=== PATIENT | male | born 1945 | race Caucasian/White ===

== ENCOUNTER 2017-12-04 08:07 | Inpatient (IN) | payer MEDICARE ==
[~2017-12-04] VITALS: Ht 170.2 cm; Wt 133.5 kg
[~2017-12-04 08:07] MED LIST: ATORVASTATIN CA10 MG PO; GLYBURIDE5 MG PO; LISINOPRIL2.5 MG PO; METOPROLOL TART25 MG PO; PANTOPRAZOLE SO40 MG PO; SPIRONOLACTONE25 MG PO
[2017-12-04] MEDS ORDERED: ONDANSETRON HCL INJ 2 MG/ML VIAL IV PRN (08:15)
[2017-12-04] MEDS ORDERED: MUPIROCIN 2% OINT 22 GM TUBE TOP ONE (08:30)
--- NOTE | 2017-12-04 09:12 | Diagnostic Imaging Report ---
PROCEDURE:X-RAY LEFT KNEE, THREE OR MORE VIEWS COMPARISON:None. INDICATIONS:FALL, LEFT KNEE PAIN FINDINGS:Diffuse osteopenia. No evidence of displaced fracture, malalignment, or joint effusion. There is tricompartmental medial compartment predominant moderate degenerative changes with joint space narrowing. Atherosclerotic vascular calcifications. CONCLUSION: Diffuse osteopenia without evidence of displaced fracture or malalignment. Dictated by: JACKIE NICOLAS M.D. on 12/04/2017 at 9:17 Electronically approved by: JACKIE NICOLAS M.D. on 12/04/2017 at 9:17
[2017-12-04] MEDS ORDERED: BACITRACIN ZINC 0.9GM TP ONE (09:15)
[2017-12-04] MEDS: HYDROMORPHONE 1MG/1ML INJ IV PRN ×2 (10:05→15:55)
[2017-12-04 10:07] LABS: BASOPHILS # (AUTO) 0.1 (0.0-0.1); BASOPHILS % 0.5 % (0.0-1.0); EOSINOPHILS # (AUTO) 0.2 (0.0-0.4); EOSINOPHILS % 2.1 % (0.0-6.0); HEMATOCRIT 34.8 % (38.2-49.6); HEMOGLOBIN 11.5 g/dL (14.0-18.0); LYMPHOCYTES # (AUTO) 1.4 (1.0-3.2); LYMPHOCYTES % 12.4 % (18.0-39.1); MEAN CORPUSCULAR HEMOGLOBIN 30.6 pg (28-32); MEAN CORPUSCULAR VOLUME 92.6 fL (81-99); MONOCYTES # (AUTO) 0.7 (0.2-0.8); MONOCYTES % 6.4 % (4.4-11.3); NEUTROPHILS # (AUTO) 8.7 (2.1-6.9); PLATELET COUNT 190 x10e3/uL (140-360); RED BLOOD COUNT 3.76 x10e6/uL (4.3-5.7); RED CELL DISTRIBUTION WIDTH 13.6 % (11.7-14.4)
--- NOTE | 2017-12-04 10:21 | Diagnostic Imaging Report ---
PROCEDURE: A single AP view of the chest. COMPARISON: Chest radiograph 02/06/2015. INDICATIONS: FALL FINDINGS: Lines/tubes: Left sided dual chamber pacer device with leads projecting over the expected location of the right atrium and right ventricle. Lungs: The lungs are well inflated and clear. There is no evidence of pneumonia or pulmonary edema. Pleura: There is no pleural effusion or pneumothorax. Heart and mediastinum: The cardiomediastinal silhouette is unchanged. Bones: No acute bony abnormality. No evidence of displaced fracture. IMPRESSION: No evidence of pneumothorax or displaced rib fracture. Clear lungs. Dictated by: JACKIE NICOLAS M.D. on 12/04/2017 at 10:26 Electronically approved by: JACKIE NICOLAS M.D. on 12/04/2017 at 10:26
[2017-12-04 10:25] LABS: ALBUMIN 2.7 g/dL (3.5-5.0); ALBUMIN/GLOBULIN RATIO 0.8 (0.8-2.0); ANION GAP 15.5 mmol/L (8-16); CALCIUM 8.8 mg/dL (8.4-10.2); CREATININE, SERUM 2.06 mg/dL (0.72-1.25); MAGNESIUM 1.4 MG/DL (1.3-2.1); POTASSIUM 4.5 mmol/L (3.5-5.1)
--- NOTE | 2017-12-04 10:41 | Diagnostic Imaging Report ---
EXAMINATION: CT of the thoracic and lumbar spine without contrast. HISTORY: Status post fall this morning going down a ramp, back pain COMPARISON: None. TECHNIQUE: Multidetector helical axial images were obtained without contrast through the thoracic and lumbar spine. The images were reconstructed using bone and soft tissue algorithms and were viewed in axial, sagittal and coronal planes. Image quality: Portable redistribution due to x-ray john attenuation given patient's body habitus and perhaps motion, with limited evaluation particularly of the lumbar spine. FINDINGS: Curvature: Normal thoracic kyphosis and lumbar lordosis. Vertebrae: -Likely acute mildly displaced acute fracture subluxation through the anterior/superior endplate of T9 and anterior longitudinal ligament, with fracture of the right anterior bridging osteophyte. -Interbody fusion and weightbearing anterior ridging osteophyte from T2 to T12 and partially at L1-L2 anteriorly and laterally at L2-L3 and L3-L4 as well as bilaterally at L5-S1. -Minimal chronic anterior wedging of the T10, T11 and T12 vertebral bodies. -Diffuse decreased bone marrow density, likely from osteopenia. Discs: T1-T2: Disc osteophyte results in severe canal stenosis. L3-L4 to L5-S1: Symmetric disc bulge and facet arthrosis. Probable moderate to severe canal and foraminal stenosis. Spinal canal: Unremarkable. Paraspinal soft tissues: Partially visualized approximately 4 cm hypoechoic dense mass probably extending from the left lobe of the thyroid gland into the upper/anterior mediastinum, possible additional subcentimeter nodule in the right lobe. Moderate paraspinal lumbosacral musculature atrophy. Partially visualized leads from pacemaker. Partially visualized sternotomy wires. Posterior ribs: Unremarkable. Sacroiliac joints: Advanced degenerative changes with partial fusion, given the above-mentioned interbody spine fusion in the thoracic spine correlation with medical history and lab results for spondyloarthropathy is recommended. IMPRESSION: 1. Age indeterminate likely acute mild fracture subluxation through the anterior aspect of the superior endplate of T9 with disruption of the anterior longitudinal ligament and fracture of the anterior bridging osteophyte as detailed above. A neurosurgery consultation is advised. 2. Very suboptimal evaluation of the lumbar spine, grossly no acute displaced fractures. 3. Thoracic spine interbody fusion and fusion of the sacroiliac joints, differential diagnosis will include degenerative versus spondyloarthropathy. 4. Probable moderate to severe degenerative spinal canal and foraminal stenosis from L3 to 4 to L5-S1. The findings were discussed with the ER physician Dr. Brown on 12/04/2017 at 10:30 AM. Signed by: Dr. Keisha Dias M.D. on 12/04/2017 10:38 AM
--- NOTE | 2017-12-04 14:28 | Diagnostic Imaging Report ---
PROCEDURE:HIP LEFT 6 VW (+/- PELVIS) COMPARISON:None. INDICATIONS:Not provided. FINDINGS: Limited by body habitus and demineralization. Severe degenerative changes of the left hip with loss of joint space and left femoral head deformity. There is minimally displaced intertrochanteric fracture. Questionable nondisplaced femoral neck fracture. Left pelvic surgical clips. CONCLUSION: Minimally displaced intertrochanteric fracture. Questionable nondisplaced femoral neck fracture. Severe degenerative changes of the left hip. Limited study. Dictated by: Kvng Pichardo M.D. on 12/04/2017 at 14:33 Electronically approved by: Kvng Pichardo M.D. on 12/04/2017 at 14:33
[2017-12-04] MEDS ORDERED: SODIUM CHLORIDE 0.9% 500ML 500 ML IV STA (14:42)
[2017-12-04] MEDS ORDERED: ACETAMINOPHEN 325 MG TAB PO PRN (15:00)
[2017-12-04] MEDS ORDERED: DIPHENHYDRAMINE HCL INJ 50 MG/ML VIAL IV PRN (15:00)
[2017-12-04] MEDS ORDERED: ASPIRIN 81 MG CHEW TAB PO ONE (15:00)
[2017-12-04 15:08] LABS: CREATINE KINASE MB 0.8 ng/mL (0-5.0)
[2017-12-04] MEDS: SODIUM CHLORIDE 0.9% 1000ML 1,000 ML IV SCH (15:36)
--- NOTE | 2017-12-04 15:41 | History and Physical ---
CHIEF COMPLAINT: "I feel down." HISTORY OF PRESENT ILLNESS: This is a 72-year-old white man who presents to [facility] emergency room with complaints of recent fall. The patient states today on the day of admission he suffered mechanical fall striking his left hip and knee on the ground. X-ray of the left knee revealed advanced degenerative joint disease, as well as osteopenia, but the left hip fracture confirmed a minimally displaced intertrochanteric fracture. It also revealed severe degenerative changes of the left hip. Moreover in the emergency room, the patient was found to have a BUN and creatinine of 23 and 2.06 respectively. The patient's B-type natriuretic peptide level was elevated at 103. The patient states that today he was scheduled for an echocardiogram because he has been experiencing chest pain lately. The patient states that he does experience intermittent episodes of left-sided chest pain, even at rest. The patient underwent a thoracolumbar spine CT in the emergency room, which revealed findings consistent with multilevel disk disease, as well as a possible acute or subacute T9 vertebral body fracture. The patient was admitted for further evaluation and treatment. REVIEW OF SYSTEMS GENERAL: The patient gained 50 pounds in just 2 years. No fever or chills. Complains of generalized weakness. HEENT: No headaches. No vision changes. CARDIOVASCULAR: Complains of intermittent episodes of left-sided chest pain at rest. Also, notes shortness of breath at times. Denies any coughing. GI: No nausea, vomiting or constipation. : No UTI symptoms. NEUROMUSCULAR: Complains of pain in his back, left hip and left knee. PAST MEDICAL HISTORY 1. Type 2 diabetes mellitus. 2. Hypertensive heart disease. 3. Stage 3 chronic kidney disease. 4. Coronary artery disease. 5. Obesity. 6. 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 7. Prostate cancer. 8. Systolic heart failure. SURGICAL HISTORY 1. Inguinal abscess incised and drained in December 2013. 2. Open cholecystectomy. 3. Abdominal hernia. 4. Perforated duodenal ulcer. 5. Coronary artery bypass grafting in 2006. 6. Pacemaker placement in 2007. 7. Prostate cancer surgery in 1998 followed by chemotherapy. 8. Prostate cancer radiation in 2002. 9. Appendectomy in 1957. SOCIAL HISTORY: The man is and lives with his . He is retired. No history of tobacco or alcohol use. ALLERGIES: NO KNOWN DRUG ALLERGIES. MEDICATIONS 1. Atorvastatin 30 mg at bedtime. 2. Glyburide 2.5 mg daily. 3. Lisinopril 5 mg daily. 4. Metoprolol tartrate 12.5 mg b.i.d. 5. Pantoprazole 40 mg daily. 6. Spironolactone 25 mg b.i.d. PHYSICAL EXAMINATION GENERAL: He is awake, alert and fully oriented. He appears to be chronically ill and very pale. His is at the bedside. VITALS: Height is 5 feet and 8 inches, weight 284 pounds, BMI 43, blood pressure is actually 90/40, but he just received intravenous hydromorphone. When he arrived to the emergency room, his blood pressure was 142/48, pulse 60, respiratory rate 22, oxygen saturation is 96% on room air, temperature is 98.4. INTEGUMENT: Skin is warm and dry. The patient is pale. No jaundice or diaphoresis. HEENT: Anicteric sclerae. Moist mucous membranes. The patient's lips are blue. NECK: Supple. No jugular venous distention. CARDIOVASCULAR: Distant heart sounds. Regular rate and rhythm with an S3 gallop. LUNGS: No rales. On rhonchi or wheezing. ABDOMEN: Obese and benign. EXTREMITIES: The patient's left lower extremity is shorter than the right, and it is extremely rotated. NEUROLOGIC: Intact. No gross focal deficits appreciated. IMPRESSION 1. Left hip (intertrochanteric) fracture secondary to mechanical fall. 2. [id number]-[id number] renal failure. 3. Chronic systolic congestive heart failure. 4. Coronary artery disease. 5. Type 2 diabetes mellitus. 6. Anemia secondary to chronic disease. 7. Extreme obesity: Body mass index of 43. PLAN 1. Consult cardiology for cardiac clearance since the patient most likely will need hip surgery in the near future. 2. Consult orthopedic surgery for the patient's acute left hip fracture. 3. Will hold spironolactone, lisinopril because of the patient's acute renal failure. 4. Will hold metoprolol tartrate because of his hypotension. 5. Judicious use of intravenous opiates. 6. Order 2-D echocardiogram. 7. Follow hemoglobin and hematocrit. 8. Follow renal function. I spent an hour in the care of this patient. Job#: [id number] RI
[2017-12-04] MEDS ORDERED: DEXAMETHASONE SOD PHOS INJ 4 MG/ML VIAL ONE (18:06)
[2017-12-04] MEDS ORDERED: LIDOCAINE HCL 2% LOCAL INJ 5 ML SDV VIAL INJ ONE (18:06)
[2017-12-04] MEDS ORDERED: DESFLURANE 240 ML BTL INH ONE (18:06)
[2017-12-04] MEDS ORDERED: PROPOFOL IV EMULSION 10 MG/ML 20 ML VIAL ONE (18:06)
[2017-12-04] MEDS ORDERED: ROCURONIUM BROMIDE 10 MG/ML 5ML VIAL ONE (18:06)
[2017-12-04] MEDS: FAMOTIDINE 20 MG/2 ML VIAL IV SCH (18:53)
[2017-12-04 19:45] VITALS: BP 113/66
[2017-12-04 20:30] VITALS: BP 113/66
[2017-12-04 21:00] VITALS: BP 113/66
[2017-12-05] VITALS (14 sets, daily range): BP systolic 88–131; BP diastolic 32–108
--- NOTE | 2017-12-05 00:58 | Consultation ---
DATE OF CONSULTATION: December 04, 2017 CARDIOLOGY CONSULTATION NOTE IDENTIFICATION: This is 72-year-old gentleman well known to our service. He does have a background history of coronary artery disease, status post previous coronary artery bypass graft surgery. He also has a permanent pacemaker implantation for secondary Mobitz type-2 heart block. There was a background history of nonsustained ventricular tachycardia. His cardiac risk factors do include hypertension, hyperlipidemia, body habitus, diabetes mellitus, and age and gender. We do have Lexiscan Cardiolite scan completed on February 09, 2016 showing a small fixed inferior wall defect consistent with scar versus attenuation artifact. We do have our previous echocardiogram done on October 24, 2016 showing left ventricular ejection fraction of 50%-55%. His valvular heart disease includes a mildly thickened aortic valve with no aortic stenosis. There is [id number] mitral regurgitation and mild tricuspid regurgitation. REASON FOR CONSULTATION: Evaluation of perioperative cardiac risk in the setting of left hip fracture. HISTORY OF PRESENT ILLNESS: The patient at 7 o'clock in the morning was getting ready to come to the clinic for an echocardiogram. While using his walker, it slipped away from him and he fell on the left side sustaining a left hip fracture. He is unable to weight bear on the leg and was brought by EMS to the hospital. On initial evaluation, he stated that there was no rotation of a hip fracture. He, subsequently, had a repeat x-ray of the hip, where in they found both degenerative changes of the left hip with loss of joint space and also minimally displaced intertrochanteric fracture. Dr. Stephens saw the patient and explained the procedure and risks for open reduction and internal fixation of the left hip fracture. The patient remains in some pain related to the fracture. He states that, at home, he can ambulate with his walker. His exercise at home varies, but he is able to walk up to 200 feet, limited by fatigue. This remains unchanged. Denies any active neck pain, arm pain or chest pain aside from left anterior left chest wall pain [appreciable with palpation] and lasting up to a minute present since his fall. Apparently, this pain has resolved from 1500 on December 04, 2017. It is a sharp pain. There is no radiation. There is no associated shortness of breath. After the fall, he has had lower back pain. He denies any awareness of rapid palpitations or lightheadedness. At night, he states he sleeps in the lounge chair about 30-degree angle. There is no history of true PND or peripheral edema. PAST MEDICAL HISTORY: These are worth notable for history of coronary artery disease with 3-vessel coronary artery bypass graft surgery and permanent pacemaker implantation. In August 2006, he had surgery for perforated ulcer. He has had prostatic cancer, status post prostatectomy in April 1999. He has had an appendectomy, fatty tumor resection in 1979, pilonidal resection, resection of infected vein in the left leg in the past. In 2007, he underwent both cholecystectomy and repair of a ventral hernia. He does have residual hernia in his anterior abdominal wall at this time. ALLERGIES: THE PATIENT HAS NO KNOWN ALLERGIES TO MEDICATIONS. MEDICATIONS: Please see MAR. SOCIAL HISTORY: There is no history of alcohol excess or recreational drug use. There is no history of tobacco use. FAMILY HISTORY: He has had a half brother with prostate cancer. His mother does have diabetes mellitus and asthma. REVIEW OF SYSTEMS: A 14-point review of systems including integumentary, neurological, cardiac, pulmonary, digestive, urological, musculoskeletal, and psychiatric systems are otherwise negative and noncontributory. He does have, at times, intermittent peripheral edema in his lower extremities. PHYSICAL EXAMINATION: GENERAL: On examination, the patient was in no acute distress. VITAL SIGNS: Showed a blood pressure of 113/66, resting heart rate 60 beats per minute [regular]. Respiratory rate was 20 breaths per minute. He is afebrile. HEAD AND NECK: He had a normal carotid upstroke and amplitude with no carotid bruits. I cannot appreciate any cervical adenopathy or thyromegaly. CARDIOVASCULAR: There is no jugular venous distention. Auscultation showed a regular S1 and S2. He does have a 2/6 systolic ejection murmur at the left lower sternal border. There is also a 2/6 peristolic murmur in the apex. CHEST: Auscultation anteriorly from the side showed clear lung aguilera with no appreciable crackles or wheezes. Does not have any tenderness on palpation. ABDOMEN: He does have probable ventral hernia. Does not appear incarcerated. Has normal bowel sounds. There are no abnormal masses or bruits otherwise. There is no hepatosplenomegaly. EXTREMITIES: He does have mild bilateral peripheral edema. His left leg is in traction. OTHER LABS: We do have a 12-lead EKG that was completed in the emergency room. The study from 934December 04, 2017 shows ventricularly paced rhythm at 60 beats per minute. Due to baseline artifact, it is difficult to ascertain an atrial rhythm. OTHER LABS: From admission, a CBC with the hemoglobin of 9.5, hematocrit 34.8%. An elevated white blood count of 11.09, and a platelet count of 190,000. Serum chemistry showed on admission the sodium 141, potassium of 4.5, BUN/creatinine of 23/2.06, with an estimated GFR that was reduced at 32. The patient, following admission, has had 1 CPK level at 0813, which is normal at 65. He has had 2 sets of troponin-I levels at 0813 and again at 0, both these were negative at 0.020 and 0.025 respectively. OTHER IMAGING: Chest x-ray from 812 on December 04, 2017, this showed no evidence of pneumothorax or any displaced rib fracture. The lungs appeared more inflated and clear of any infiltrates or congestion. IMPRESSION: Overall, it is felt that Mr. Yo Espinoza, who sustained a displaced intertrochanteric fracture involving the left femur. This occurred from a fall on the morning of December 04, 2017 at 0700. We do know that he has history of coronary artery disease, status post 3-vessel coronary artery bypass graft surgery and also, pacemaker in situ. His most recent nuclear stress test from February 09, 2016, showed no active ischemia, only a small fixed defect in inferior wall consistent of scar versus attenuation artifact. Given the nature of his hip fracture, he is not a candidate for further risk stratification at this time. We do know that he had on October 24, 2016, a relatively preserved left ejection fraction range of 50%-55% and there is no aortic stenosis. It was felt that in light of multiple cardiac risk factors including diabetes mellitus, hypertension, hyperlipidemia, age, and gender, that he was deemed to be susceptible, but elevated perioperative risk for cardiac events such as perioperative angina, infarction, congestive heart failure or . The alternative, options were discussed with the patient including conservative therapy and nonsurgical repair of his hip fracture. This is deemed by the patient and the attending staff to be not viable options especially since he will be at much elevated risk of deep venous thrombosis, pulmonary embolism or pneumonia with prolonged immobility. At present, the patient has no congestive heart failure decompensation. He does have permanent pacemaker, which does need to be monitored during the procedure. I would suggestive minimization of any fluid shift with postoperative monitoring in the ICU. He should continue the beta-blockers [Coreg 6.25 mg p.o. b.i.d.] perioperatively. Withhold the Britt-3 fatty acids and the aspirin perioperatively. I would avoid excessive diuresis and agree with Dr. العراقي's recommendation is to hold spironolactone perioperatively. At baseline, he has renal insufficiency with reduced estimated GFR of 32. Previously, it had been as low as 30 from November 24, 2016. This appears to be his baseline levels. Other concurrent comorbidities include the presence of Mobitz type 2 secondary AV block for which he has permanent pacemaker in situ. When checked on October 06, 2017, it had normal function with estimated battery left of 8 years. There was no documentation of tachy arrhythmias. He also has had history of nonsustained ventricular tachycardia, lymphedema, anemia, history of prostate cancer, history of ventral hernia, and history of fatty liver. We also know that he has had a history of prostate cancer, status post resection and currently on hormonal therapy. RECOMMENDATIONS: As above. Will follow up with the patient with you preoperatively. We will follow him with serial EKGs postoperatively. Will follow up on the echocardiogram that was completed this afternoon. Thank you for the courtesy of the preoperative consultation. Job#: [id number] CQ
[2017-12-05] MEDS: SODIUM CHLORIDE 0.9% 1000ML 1,000 ML IV SCH ×4 (01:55→21:00)
[2017-12-05 05:22] LABS: BASOPHILS # (AUTO) 0.1 (0.0-0.1); BASOPHILS % 0.5 % (0.0-1.0); EOSINOPHILS # (AUTO) 0.2 (0.0-0.4); EOSINOPHILS % 1.9 % (0.0-6.0); HEMATOCRIT 31.6 % (38.2-49.6); HEMOGLOBIN 10.1 g/dL (14.0-18.0); LYMPHOCYTES # (AUTO) 1.5 (1.0-3.2); LYMPHOCYTES % 14.6 % (18.0-39.1); MEAN CORPUSCULAR HEMOGLOBIN 30.3 pg (28-32); MEAN CORPUSCULAR VOLUME 94.9 fL (81-99); MONOCYTES # (AUTO) 1.1 (0.2-0.8); MONOCYTES % 11.2 % (4.4-11.3); NEUTROPHILS # (AUTO) 7.2 (2.1-6.9); NEUTROPHILS % 71.4 % (38.7-80.0); PLATELET COUNT 163 x10e3/uL (140-360); RED BLOOD COUNT 3.33 x10e6/uL (4.3-5.7); RED CELL DISTRIBUTION WIDTH 13.7 % (11.7-14.4)
[2017-12-05 05:50] LABS: ALBUMIN 2.5 g/dL (3.5-5.0); ALBUMIN/GLOBULIN RATIO 0.8 (0.8-2.0); ANION GAP 12.7 mmol/L (8-16); CALCIUM 8.4 mg/dL (8.4-10.2); CREATININE, SERUM 1.92 mg/dL (0.72-1.25); POTASSIUM 4.7 mmol/L (3.5-5.1)
[2017-12-05] MEDS ORDERED: CEFAZOLIN SOD 2 GM in WATER STERILE 10ML VIAL 10 ML IV SCH (07:45)
[2017-12-05] MEDS ORDERED: CEFAZOLIN SOD 1 GM VIAL IV SCH (08:15)
[2017-12-05] MEDS: FAMOTIDINE 20 MG/2 ML VIAL IV SCH ×2 (08:52→17:00)
[2017-12-05] MEDS ORDERED: CARVEDILOL 12.5 MG TAB PO SCH (09:00)
[2017-12-05] MEDS ORDERED: ROPIVACAINE 246.25 MG, EPINEPHRINE HCL 1:1000 0.5 MG, CLONIDINE HCL 0.08 MG, KETOROLAC ... INJ ONE ×5 (09:30)
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
[2017-12-05] MEDS ORDERED: TRANEXAMIC ACID 1,000 MG/10 ML ML ONE (10:25)
[2017-12-05] MEDS ORDERED: MUPIROCIN 2% OINT 22 GM TUBE ONE (10:25)
[2017-12-05] MEDS ORDERED: BACITRACIN 50,000 UNIT VIAL ONE (10:25)
[2017-12-05] MEDS ORDERED: EPHEDRINE SULFATE INJ 50 MG/ML VIAL ONE (12:34)
[2017-12-05] MEDS ORDERED: DOCUSATE SODIUM 100 MG CAP PO PRN (13:15)
[2017-12-05] MEDS ORDERED: DIPHENHYDRAMINE HCL INJ 50 MG/ML VIAL IM/IV PRN (13:15)
[2017-12-05] MEDS ORDERED: PROMETHAZINE HCL (IM) 25 MG/ML VIAL INJ PRN (13:15)
[2017-12-05] MEDS ORDERED: KETOROLAC TROMETHAMINE 30 MG/ML VIAL IV PRN (13:15)
[2017-12-05] MEDS ORDERED: ACETAMINOPHEN 650 MG SUPP PR PRN (13:15)
[2017-12-05] MEDS ORDERED: HYDROCODONE/APAP 5MG-325MG TAB PO PRN (13:15)
[2017-12-05] MEDS ORDERED: ONDANSETRON HCL INJ 2 MG/ML VIAL IV PRN (13:15)
[2017-12-05] MEDS ORDERED: ZOLPIDEM TARTRATE 5 MG TAB PO PRN (13:15)
[2017-12-05] MEDS ORDERED: FUROSEMIDE INJ 10 MG/ML 4 ML VIAL ONE (13:48)
--- NOTE | 2017-12-05 13:50 | Diagnostic Imaging Report ---
PROCEDURE:PELVIS AP 1-2 VIEWS INDICATION:Postop left hip COMPARISON:None. FINDINGS: 1 view of the pelvis (AP portable in the operating room) Patient is status post left total hip arthroplasty for previously seen intertrochanteric fracture. No evidence of new fracture or hardware complication. Skin valerie indicate recent surgery. CONCLUSION: As above Dictated by: Evan Medel M.D. on 12/05/2017 at 13:56 Electronically approved by: Evan Medel M.D. on 12/05/2017 at 13:56
[2017-12-05] MEDS ORDERED: CEFAZOLIN SOD 1 GM/D5W 50ML 50 ML IV SCH (14:00)
--- NOTE | 2017-12-05 14:43 | Diagnostic Imaging Report ---
PROCEDURE: CHEST SINGLE (PORTABLE) COMPARISON: 12/04/2017. INDICATIONS: POST-OPERATIVE CHEST X-RAY FOR POSSIBLE PULMONARY EDEMA FINDINGS: The lungs are well-inflated. Minimal linear opacity in the lower lung zones compatible with subsegmental atelectasis. No pleural effusion or pneumothorax. Stable cardiomediastinal contour with postsurgical changes of the mediastinum and a left subclavian approach compatible cardiac device. No overt pulmonary edema. No acute osseous abnormalities. Healed right-sided rib fracture deformities. CONCLUSION: Subsegmental atelectasis in the lower lung zones. No pulmonary edema per clinical query. Dictated by: Sebastian Diamond M.D. on 12/05/2017 at 14:48 Electronically approved by: Sebastian Diamond M.D. on 12/05/2017 at 14:48
[2017-12-05] MEDS ORDERED: KETAMINE HCL INJ 50 MG/ML 10 ML VIAL ONE (15:01)
[2017-12-05] MEDS ORDERED: MIDAZOLAM HCL 2 MG/2 ML VIAL ONE (15:01)
[2017-12-05] MEDS ORDERED: FENTANYL CITRATE/PF 100MCG/2 ML INJ ONE (15:01)
--- NOTE | 2017-12-05 15:45 | Operative Report ---
DATE OF PROCEDURE: December 05, 2017 TRACE CLERK: Uday Santana PA-C The patient was brought to the operating room for induction of anesthesia. Throughout this case, my PA's assistance was necessary for retraction of soft tissue and positioning of the extremity. This allows for efficient and technically successful execution of the operation and is considered medically necessary. PREOPERATIVE DIAGNOSES 1. Left hip intertrochanteric fracture. 2. Severe neglected osteoarthritis. 3. Extreme morbid obesity. PROCEDURE: Complex left total hip arthroplasty. INDICATIONS: The patient is a 72-year-old gentleman with severe untreated arthritis of his left hip. He had a simple fall yesterday and broke his left proximal femur. He also has a body mass index of 45. He is a household ambulator with a walker. I have discussed the findings and treatment options with the patient and his . His obesity is going to make any type of postoperative mobilization extremely difficult. The alternative of not treating this would almost have certain mortality. The risks and benefits of converting this to a hip replacement have been discussed. The likelihood of perioperative complications has been explained. They state they understand and feel there is little choice other than to proceed. DESCRIPTION OF PROCEDURE: The patient was brought to the operating room. He received prophylactic antibiotics. He was placed under general anesthetic. He was positioned in the right lateral decubitus position. Throughout the case, the patient's size required additional personnel and time to complete the standard procedure. His left hip was prepped and draped in a sterile manner. A preoperative time out was performed. An extensile incision for a posterior approach was made to the left hip. Extensive subcutaneous adipose tissue was encountered. Hemostasis was obtained with electrocautery. A deep self-retraining Charnley retractor was placed. The extent of the fracture was then carefully explored. His bone was very brittle. Two cerclage cable wires were placed for temporary fixation of the proximal femur. The posterior capsule was then carefully exposed and released. The hip was essentially auto fused. A full inch osteotome was used to attempt to resect the femoral head. Sequential placement of acetabular retractors was accomplished. Massive peripheral osteophytes around the acetabulum were noted. The posterior wall osteophyte was removed with an inch osteotome. The distinction of the femoral head and the socket was gradually accomplished. Further mobilization of the soft tissue allowed ultimate removal of the femoral head from the socket. The true floor of the acetabulum was then established with a 50 mm reamer. The socket was then sequentially reamed to 55 mm. A Eloy Biomet OsseoTi socket was chosen. The aperture osteophytes were reamed up to 70 mm. The socket was then impacted into place. Fixation was good. Fixation was augmented with a single 25 mm screw into the ilium. A dual mobility bearing liner was then seated into place. Additional care and time were then taken to carefully remove all of the massive marginal osteophytes. These extended roughly 4 to 5 cm around the socket. A portion of a 100 mL premixed pericapsular injection was then placed around the socket. On multiple occasions throughout this portion of the case, a shower-tip pulsatile lavage was used to irrigate the hip. Attention was then directed towards the proximal femur. The greater trochanter, lesser trochanter and proximal femur were basically in small fragments of bone. The canal was carefully reamed. The bone was very poor quality. I elected to trial a 20 mm x 190 mm modular stem. This was felt to provide appropriate canal fill and rotational stability. A 70 mm proximal body provided optimal soft tissue balancing and good stability. The trial implants were removed. The stem was seated and the proximal body was attached. The dual mobility bearing head was seated onto the stem and a final reduction was performed. The remainder of the VANDANA injection was placed into the surrounding soft tissue. The hip was further irrigated with a shower-tip pulsatile lavage. One of the previously placed cable wires was noted to have become loose. This was removed. The tensor fascia and gluteal fascia were then carefully closed with interrupted number 2 Ethibond. The skin was closed subcuticular Vicryl and valerie. A sterile Prevena wound VAC was placed. He was returned to the supine position and extubated. He was transported to the recovery room in stable condition. Estimated blood loss was approximately 500 mL. At the end of the procedure all needle and sponge counts were correct. Job#: [id number] MAYTE
[2017-12-05 16:01] LABS: BASOPHILS # (AUTO) 0.1 (0.0-0.1); BASOPHILS % 0.3 % (0.0-1.0); EOSINOPHILS % 0.2 % (0.0-6.0); HEMATOCRIT 35.6 % (38.2-49.6); HEMOGLOBIN 11.5 g/dL (14.0-18.0); LYMPHOCYTES # (AUTO) 1.6 (1.0-3.2); LYMPHOCYTES % 8.4 % (18.0-39.1); MEAN CORPUSCULAR HEMOGLOBIN 30.2 pg (28-32); MEAN CORPUSCULAR HGB CONC 32.3 g/dL (31-35); MEAN CORPUSCULAR VOLUME 93.4 fL (81-99); MONOCYTES # (AUTO) 1.5 (0.2-0.8); MONOCYTES % 7.7 % (4.4-11.3); NEUTROPHILS # (AUTO) 15.8 (2.1-6.9); NEUTROPHILS % 82.9 % (38.7-80.0); PLATELET COUNT 159 x10e3/uL (140-360); RED BLOOD COUNT 3.81 x10e6/uL (4.3-5.7); RED CELL DISTRIBUTION WIDTH 14.3 % (11.7-14.4)
[2017-12-05] MEDS: CEFAZOLIN SOD 1 GM VIAL IV SCH (17:00)
[2017-12-05] MEDS: ASPIRIN 325 MG TAB PO SCH (17:00)
[2017-12-05] MEDS ORDERED: CELECOXIB 100 MG CAP PO SCH (17:00)
[2017-12-05] MEDS: CELECOXIB 200 MG CAP PO SCH (17:00)
[2017-12-05] MEDS: ACETAMINOPHEN 1000 MG/100 ML IV SCH (18:54)
[2017-12-05] MEDS: HYDROMORPHONE 1MG/1ML INJ IV PRN (21:22)
[2017-12-06] VITALS (9 sets, daily range): BP systolic 102–126; BP diastolic 44–56
[2017-12-06] MEDS: SODIUM CHLORIDE 0.9% 1000ML 1,000 ML IV SCH ×4 (00:55→17:00)
[2017-12-06] MEDS: ACETAMINOPHEN 1000 MG/100 ML IV SCH ×3 (00:56→12:14)
[2017-12-06] MEDS: CEFAZOLIN SOD 1 GM VIAL IV SCH ×2 (00:56→07:55)
[2017-12-06 05:21] LABS: BASOPHILS % 0.1 % (0.0-1.0); HEMATOCRIT 28.6 % (38.2-49.6); HEMOGLOBIN 9.4 g/dL (14.0-18.0); LYMPHOCYTES # (AUTO) 1.4 (1.0-3.2); MEAN CORPUSCULAR HEMOGLOBIN 30.3 pg (28-32); MEAN CORPUSCULAR HGB CONC 32.9 g/dL (31-35); MEAN CORPUSCULAR VOLUME 92.3 fL (81-99); MONOCYTES # (AUTO) 1.4 (0.2-0.8); MONOCYTES % 10.3 % (4.4-11.3); NEUTROPHILS # (AUTO) 10.9 (2.1-6.9); NEUTROPHILS % 79.1 % (38.7-80.0); PLATELET COUNT 138 x10e3/uL (140-360); RED CELL DISTRIBUTION WIDTH 14.3 % (11.7-14.4)
[2017-12-06 05:43] LABS: ANION GAP 14.4 mmol/L (8-16); CALCIUM 8.1 mg/dL (8.4-10.2); CREATININE, SERUM 2.2 mg/dL (0.72-1.25); POTASSIUM 5.4 mmol/L (3.5-5.1)
[2017-12-06] MEDS: ASPIRIN 325 MG TAB PO SCH ×3 (07:55→17:00)
[2017-12-06] MEDS: FAMOTIDINE 20 MG/2 ML VIAL IV SCH ×2 (07:55→17:36)
[2017-12-06] MEDS: CELECOXIB 200 MG CAP PO SCH (07:55)
[2017-12-06] MEDS: HYDROCODONE/APAP 7.5MG-325MG 1 EA TAB PO PRN (10:15)
[2017-12-06] MEDS: CEFTRIAXONE SOD 1 GM VIAL IV SCH ×2 (10:21→22:07)
[2017-12-06] MEDS ORDERED: ACETAMINOPHEN 1000 MG/100 ML IV PRN (13:15)
[2017-12-07 04:00] VITALS: BP 114/53
[2017-12-07 04:38] LABS: BASOPHILS % 0.4 % (0.0-1.0); EOSINOPHILS # (AUTO) 0.4 (0.0-0.4); EOSINOPHILS % 4.1 % (0.0-6.0); HEMATOCRIT 25.7 % (38.2-49.6); HEMOGLOBIN 8.4 g/dL (14.0-18.0); LYMPHOCYTES # (AUTO) 1.5 (1.0-3.2); MEAN CORPUSCULAR HEMOGLOBIN 30.1 pg (28-32); MEAN CORPUSCULAR HGB CONC 32.7 g/dL (31-35); MEAN CORPUSCULAR VOLUME 92.1 fL (81-99); MONOCYTES # (AUTO) 1.1 (0.2-0.8); MONOCYTES % 10.9 % (4.4-11.3); NEUTROPHILS # (AUTO) 6.5 (2.1-6.9); NEUTROPHILS % 68.1 % (38.7-80.0); PLATELET COUNT 130 x10e3/uL (140-360); RED BLOOD COUNT 2.79 x10e6/uL (4.3-5.7); RED CELL DISTRIBUTION WIDTH 14.1 % (11.7-14.4)
[2017-12-07 05:06] LABS: ALBUMIN 2.1 g/dL (3.5-5.0); ALBUMIN/GLOBULIN RATIO 0.7 (0.8-2.0); ANION GAP 11.9 mmol/L (8-16); CALCIUM 8.1 mg/dL (8.4-10.2); CREATININE, SERUM 2.09 mg/dL (0.72-1.25); POTASSIUM 4.9 mmol/L (3.5-5.1)
--- NOTE | 2017-12-07 06:08 | Diagnostic Imaging Report ---
CHEST SINGLE (PORTABLE), 12/07/2017 5:00 AM Technique: CHEST SINGLE (PORTABLE) Comparison: 12/05/2017 Clinical history: Possible pneumonia Findings: See Impression Impression: Limited by body habitus and portable lordotic technique. 1. Lines/Tubes: Multiple wires overlying the patient. Left chest wall pacer. Median sternotomy wires. 2. Stable moderately enlarged cardiomediastinal silhouette given differences in technique. 3. Central vascular congestion. Mild retrocardiac opacity, likely atelectasis. Attention on follow-up given concern for pneumonia. Signed by: Dr Viviane Brooks MD on 12/07/2017 6:04 AM
[2017-12-07 08:00] VITALS: BP 133/53
[2017-12-07] MEDS: ASPIRIN 325 MG TAB PO SCH (09:00)
[2017-12-07] MEDS: CEFTRIAXONE SOD 1 GM VIAL IV SCH (09:11)
[2017-12-07] MEDS: FAMOTIDINE 20 MG/2 ML VIAL IV SCH (09:11)
[2017-12-07] MEDS: HYDROCODONE/APAP 7.5MG-325MG 1 EA TAB PO PRN (09:12)
[2017-12-07 09:36] VITALS: BP 133/53
--- NOTE | 2017-12-07 10:55 | Discharge Summary ---
ADMIT DIAGNOSES: 1. Left hip intertrochanteric fracture secondary to mechanical fall. 2. Eskgz-gb-ksqsoeq renal failure. 3. Chronic systolic congestive heart failure. 4. Coronary artery disease. 5. Type 2 diabetes mellitus. 6. Anemia secondary to chronic disease. 7. Extreme obesity, body mass index 45. DISCHARGE DIAGNOSES: 1. Status post left total hip arthroplasty. 2. Stage 3 chronic kidney disease. 3. Extreme obesity, body mass index 45. 4. Left lower lobe pneumonia, likely gram-negative laure. 5. Coronary artery disease. 6. Anemia secondary to chronic disease. 7. Type 2 diabetes mellitus. HOSPITAL COURSE: This is a 72-year-old white man who suffered a left intertrochanteric fracture secondary to mechanical fall. The patient underwent successful left total hip arthroplasty, which was performed by his orthopedic surgeon, namely, Dr. David Box. On admission, patient was diagnosed with vnyrc-cx-[id number] renal failure, but it was concluded that his renal function was most likely at his baseline. On day of discharge, patient's BUN and creatinine were 36 and 2.09 respectively with calculated GFR of 31 mL/min. During this hospitalization, patient unfortunately was diagnosed with left lower lobe pneumonia, most likely gram-negative laure in etiology. The patient improved clinically with intravenous antibiotics, namely ceftriaxone. The decision was made to transfer patient to a long-term acute care facility, namely [facility] where he could receive intravenous antibiotics in regards to his pneumonia as well as daily physician management of his multiple medical comorbidities. Patient underwent 2D echocardiogram during this hospitalization, which revealed a preserved left ventricular ejection fraction of 64%, but it did reveal left atrial enlargement as well as moderate concentric left ventricular hypertrophy. The patient's hospitalization was unremarkable. His condition on transfer to [facility] was stable with an overall fair prognosis. DISCHARGE MEDICATIONS: 1. [place] 7.5 per 325 one every 4 hours p.r.n. pain. 2. Ceftriaxone 1 g intravenous every 12 hours. 3. Famotidine 20 mg intravenous b.i.d. 4. Colace 100 mg b.i.d. 5. Hydromorphone 0.5 mg intravenous every 4 hours p.r.n. severe pain. 6. Aspirin 325 mg b.i.d. 7. Promethazine 12.5 mg intravenous every 6 hours p.r.n. nausea, vomiting. 8. Zolpidem 5 mg nightly p.r.n. insomnia. FOLLOWUP INSTRUCTIONS: As previously stated the patient will transfer to a long-term acute care facility namely [facility] where he will be under the care of his attending, namely myself, Dr. Ирина You. The following home medications were held: Atorvastatin, glyburide, lisinopril, metoprolol tartrate, pantoprazole, and spironolactone. ИРИНА YOU MD Job#: [id number] cc: DAVID BOX MD MTDD
[2017-12-07 13:27] VITALS: BP 133/71
[2017-12-07] MEDS ORDERED: FAMOTIDINE 20 MG TAB PO SCH (16:30)
[2017-12-07 16:44] VITALS: BP 143/65
== END 2017-12-07 16:40 | DRG 469 ==
LOC: ER 08:07 → ERHOLD 15:05 → MED/SURG2 19:40 → ICU 12-05 17:20 → MED/SURG 12-05 23:49
PROVIDERS: ADMIT Internal Medicine; ATTEND Internal Medicine
PROC: 30233N1 Transfusion of Nonautologous Red Blood Cells into Peripheral Vein, Percutaneous Approach (ICD-10-PCS; 2017-12-05)
PROC: 0SRB0JZ Replacement of Left Hip Joint with Synthetic Substitute, Open Approach (ICD-10-PCS; principal; 2017-12-05 11:30)
DX: S72.142A Displaced intertrochanteric fracture of left femur, initial encounter for closed fracture (principal); J15.6 Pneumonia due to other Gram-negative bacteria; N17.9 Acute kidney failure, unspecified; I50.22 Chronic systolic (congestive) heart failure; Z68.42 Body mass index [BMI] 45.0-49.9, adult; I13.0 Hypertensive heart and chronic kidney disease with heart failure and stage 1 through stage 4 chronic kidney disease, or unspecified chronic kidney disease; I25.10 Atherosclerotic heart disease of native coronary artery without angina pectoris; E66.01 Morbid (severe) obesity due to excess calories; L89.151 Pressure ulcer of sacral region, stage 1; E11.22 Type 2 diabetes mellitus with diabetic chronic kidney disease; N18.3 Chronic kidney disease, stage 3 (moderate); Z79.4 Long term (current) use of insulin; N39.498 Other specified urinary incontinence; N36.42 Intrinsic sphincter deficiency (ISD); D63.8 Anemia in other chronic diseases classified elsewhere; Z85.46 Personal history of malignant neoplasm of prostate; Z95.1 Presence of aortocoronary bypass graft; Z95.0 Presence of cardiac pacemaker; Z90.79 Acquired absence of other genital organ(s); I44.1 Atrioventricular block, second degree; K76.0 Fatty (change of) liver, not elsewhere classified; I89.0 Lymphedema, not elsewhere classified
CPT/HCPCS: 36415; 36430; 71045; 72128; 72131; 72170; 80048; 80053; 82550; 82553; 82948; 83735; 83880; 84484; 85025; 86850; 86900; 86920; 93005; 93306; 97139; 97608; 99284; J0171; J0690; J0696; J1100; J1170; J1200; J1885; J1940; J2001; J2250; J2405; J2550; J2795; J7030; J7040; P9016

== ENCOUNTER 2018-01-19 13:00 | Emergency (ER) | payer MEDICARE ==
[~2018-01-19] VITALS: Ht 172.7 cm; Wt 145.1 kg
[2018-01-19 13:57] LABS: BASOPHILS % 0.1 % (0.0-1.0); EOSINOPHILS # (AUTO) 0.1 (0.0-0.4); EOSINOPHILS % 1.1 % (0.0-6.0); HEMATOCRIT 31.4 % (38.2-49.6); HEMOGLOBIN 9.8 g/dL (14.0-18.0); LYMPHOCYTES # (AUTO) 0.9 (1.0-3.2); LYMPHOCYTES % 9.2 % (18.0-39.1); MEAN CORPUSCULAR HEMOGLOBIN 29.8 pg (28-32); MEAN CORPUSCULAR HGB CONC 31.2 g/dL (31-35); MEAN CORPUSCULAR VOLUME 95.4 fL (81-99); MONOCYTES # (AUTO) 1.3 (0.2-0.8); MONOCYTES % 13.4 % (4.4-11.3); NEUTROPHILS # (AUTO) 7.2 (2.1-6.9); NEUTROPHILS % 75.9 % (38.7-80.0); PLATELET COUNT 233 x10e3/uL (140-360); RED BLOOD COUNT 3.29 x10e6/uL (4.3-5.7); RED CELL DISTRIBUTION WIDTH 13.8 % (11.7-14.4)
[2018-01-19 14:07] LABS: ANION GAP 15.8 mmol/L (8-16); CREATININE, SERUM 1.32 mg/dL (0.72-1.25); POTASSIUM 3.8 mmol/L (3.5-5.1)
== END 2018-01-19 19:10 | disposition home or self-care (01) ==
LOC: ER 13:00
DX: T81.32XA Disruption of internal operation (surgical) wound, not elsewhere classified, initial encounter (principal)
CPT/HCPCS: 36415; 80048; 85025; 87071; 87186; 87205; 93005; 99284

== ENCOUNTER 2018-04-06 12:07 | Inpatient (IN) | payer MEDICARE ==
[2018-04-06] VITALS (23 sets, daily range): BP systolic 79–157; BP diastolic 23–131
[~2018-04-06] VITALS: Ht 170.2 cm; Wt 137.9 kg
--- OUTSIDE RECORDS SUMMARY | 2018-04-06 12:11 | XMS REPORT | Clinical Summary ---
Author Author [place] [facility] Organization [facility] Address Unknown Phone Unavailable Care Team Providers Care Delivery Rn Name Role Phone Asked, No Pcp PCP Unavailable Allergies No Known Allergies Medications Not on file Active Problems Not on file Encounters Care Team Description Date Type Specialty Timbo Quan MD 01/19/2018 Emergency Emergency Medicine after 04/05/2017 Social History Date Tobacco Use Types Packs/Day Years Used Never Smoker Smokeless Tobacco: Never Used Alcohol Use Drinks/Week oz/Week Comments No Sex Assigned at Date Recorded Not on file Industry Job Start Date Occupation Not on file Not on file Not on file Travel End Travel History Travel Start No recent travel history available. Last Filed Vital Signs Time Taken Vital Sign Reading 01/19/2018 5:04 PM CDT Blood Pressure 118/79 01/19/2018 5:04 PM CDT Pulse 134 - Temperature - 01/19/2018 5:04 PM CDT Respiratory Rate 30 01/19/2018 5:04 PM CDT Oxygen Saturation 82% - Inhaled Oxygen - Concentration - Weight - - Height - - Body Mass Index - Plan of Treatment Not on file Results Not on fileafter 04/05/2017 Insurance Payer Benefit Subscriber ID Type Phone Address Plan / Group MEDICARE MEDICARE xxxxxxxxxx Medicare [place], [place] PART A AND B Advance Directives Patient has advance care planning documents on file. For more information, wilbur reilly contact: Shabbir Hughes [address] [place] [phone]
[2018-04-06] MEDS ORDERED: SODIUM CHLORIDE 0.9% 500ML 500 ML IV STA (12:23)
[2018-04-06] MEDS ORDERED: VANCOMYCIN 1GM/NS 250 ML 250 ML IV ONE (12:45)
[2018-04-06 13:03] LABS: BASOPHILS % 0.2 % (0.0-1.0); EOSINOPHILS # (AUTO) 0.1 (0.0-0.4); EOSINOPHILS % 0.7 % (0.0-6.0); HEMATOCRIT 33.8 % (38.2-49.6); HEMOGLOBIN 10.9 g/dL (14.0-18.0); LYMPHOCYTES # (AUTO) 1.2 (1.0-3.2); LYMPHOCYTES % 6.8 % (18.0-39.1); MEAN CORPUSCULAR HEMOGLOBIN 28.8 pg (28-32); MEAN CORPUSCULAR HGB CONC 32.2 g/dL (31-35); MEAN CORPUSCULAR VOLUME 89.2 fL (81-99); MONOCYTES # (AUTO) 1.6 (0.2-0.8); MONOCYTES % 8.6 % (4.4-11.3); NEUTROPHILS # (AUTO) 15.3 (2.1-6.9); NEUTROPHILS % 82.9 % (38.7-80.0); PLATELET COUNT 395 x10e3/uL (140-360); RED BLOOD COUNT 3.79 x10e6/uL (4.3-5.7)
[2018-04-06 13:29] LABS: ALBUMIN 1.5 g/dL (3.5-5.0); ALBUMIN/GLOBULIN RATIO 0.3 (0.8-2.0); ANION GAP 15.3 mmol/L (8-16); CALCIUM 9.7 mg/dL (8.4-10.2); CREATININE, SERUM 1.31 mg/dL (0.72-1.25); MAGNESIUM 1.6 MG/DL (1.3-2.1)
[2018-04-06] MEDS ORDERED: SODIUM CHLORIDE 0.9% 500ML 500 ML IV ONE ×3 (13:30→15:45)
[2018-04-06 13:33] LABS: INR 0.93; PROTHROMBIN TIME 13.3 seconds (11.9-14.5)
[2018-04-06 13:50] LABS: POTASSIUM 5.3 mmol/L (3.5-5.1)
[2018-04-06] MEDS ORDERED: SODIUM CHLORIDE 0.9% 1000ML 1,000 ML IV SCH (13:55)
[2018-04-06] MEDS ORDERED: MORPHINE SULFATE 2 MG/ML SYR IV PRN (14:00)
[2018-04-06 14:11] LABS: CLARITY,URINE SL CLOUDY (CLEAR); COLOR,URINE YELLOW (YELLOW); KETONES,URINE NEGATIVE (NEGATIVE); LEUKOCYTE ESTERASE ,URINE 2+ (NEGATIVE); NITRITE,URINE NEGATIVE (NEGATIVE); PROTEIN,URINE DIPSTICK TRACE (NEGATIVE); URINE UROBILINOGEN 0.2 mg/dL (0.2 - 1)
[2018-04-06 14:12] LABS: BILIRUBIN,URINE NEGATIVE (NEGATIVE)
[2018-04-06] MEDS ORDERED: MORPHINE SULFATE INJ 4 MG/ML INJ IV PRN (14:15)
[2018-04-06 14:24] LABS: BACTERIA,URINE MANY /HPF
[2018-04-06 14:25] LABS: CREATINE KINASE MB 0.6 ng/mL (0-5.0)
[2018-04-06] MEDS ORDERED: SODIUM CHLORIDE 0.9% 1000ML 1,000 ML IV ONE ×2 (14:45→21:15)
--- OUTSIDE RECORDS SUMMARY | 2018-04-06 14:48 | XMS REPORT | Clinical Summary ---
Author Author [place] Organization [facility] Address Unknown Phone Unavailable Care Team Providers Care Licensed Clinical Social Worker Name Role Phone Asked, No Pcp PCP [...] more information, wilbur reilly contact: Shabbir Hughes [address] [place] [phone]
--- NOTE | 2018-04-06 15:47 | Diagnostic Imaging Report ---
Examination: Single AP view of the chest. COMPARISON: 12/07/2017 INDICATION: Line placement DISCUSSION: Interval placement of a right internal jugular central venous catheter. The tip projects over the expected region of the confluence of the right and left brachiocephalic veins. Lungs are well-inflated and without gross consolidation or sizable pleural effusion. Stable enlargement of the cardiac silhouette. Prominence of the central pulmonary vasculature. No acute osseous abnormality. IMPRESSION: Right internal jugular central venous catheter tip projects over the expected region of the brachiocephalic venous confluence/upper superior vena cava. No pneumothorax. Mild cardiomegaly with pulmonary venous congestion. Signed by: Dr. Sebastian Diamond M.D. on 04/06/2018 3:43 PM
[2018-04-06] MEDS: NOREPINEPHRINE INJ 4MG/4ML 8 MG in DEXTROSE 5% 250ML 250 ML IV SCH (16:15)
[2018-04-06] MEDS: METOPROLOL TARTRATE 25 MG TAB PO SCH (16:47)
[2018-04-06] MEDS: CEFEPIME HCL 1 GM VIAL IV SCH ×2 (16:53→22:27)
[2018-04-06] MEDS: SPIRONOLACTONE 25 MG TAB PO SCH (16:56)
--- NOTE | 2018-04-06 18:24 | Diagnostic Imaging Report ---
HIP LEFT 2-3 VW (+/- PELVIS) - 3 views HISTORY: Pain COMPARISON: None available. FINDINGS: See impression. IMPRESSION: Very limited study due to body habitus. Left hip arthroplasty. Hardware appears intact. No definite evidence of beckie-hardware lucency. Signed by: Dr. Kvng Pichardo MD on 04/06/2018 6:21 PM
--- NOTE | 2018-04-06 18:27 | Diagnostic Imaging Report ---
FEMUR 2 VIEWS MINIMUM LEFT - 4 views HISTORY: Pain COMPARISON: None available. FINDINGS: See impression. IMPRESSION: Very limited study due to body habitus and generalized demineralization. Status post left hip arthroplasty. Hardware appears intact. The distal tip of the intramedullary portion of the hardware is off the midline and overlies the anterior mid shaft femoral cortex on crosstable view. Signed by: Dr. Kvng Pichardo MD on 04/06/2018 6:24 PM
[2018-04-06 18:49] LABS: HYPOCHROMASIA SLIGHT; LYMPHOCYTES % (MANUAL) 6 % (19-48); METAMYELOCYTES % (MANUAL) 1 % (0-0); MONOCYTES % (MANUAL) 6 % (3.4-9.0); NEUTROPHILS % (MANUAL) 86 % (40-74); PLATELET ESTIMATE SLIGHTLY INCREASED; PLATELET MORPHOLOGY COMMENT NORMAL; RBC MORPHOLOGY COMMENT NORMAL
[2018-04-06] MEDS: ONDANSETRON HCL INJ 2 MG/ML VIAL IV PRN (19:49)
[2018-04-06 20:21] LABS: BASOPHILS # (AUTO) 0.1 (0.0-0.1); BASOPHILS % 0.2 % (0.0-1.0); EOSINOPHILS # (AUTO) 0.1 (0.0-0.4); EOSINOPHILS % 0.3 % (0.0-6.0); HEMATOCRIT 31.3 % (38.2-49.6); LYMPHOCYTES # (AUTO) 1.3 (1.0-3.2); LYMPHOCYTES % 5.3 % (18.0-39.1); MEAN CORPUSCULAR HEMOGLOBIN 28.6 pg (28-32); MEAN CORPUSCULAR HGB CONC 31.9 g/dL (31-35); MEAN CORPUSCULAR VOLUME 89.4 fL (81-99); MONOCYTES # (AUTO) 2.1 (0.2-0.8); MONOCYTES % 8.8 % (4.4-11.3); NEUTROPHILS # (AUTO) 20.3 (2.1-6.9); NEUTROPHILS % 84.2 % (38.7-80.0); PLATELET COUNT 432 x10e3/uL (140-360)
[2018-04-06 20:42] LABS: ANION GAP 12.3 mmol/L (8-16); CALCIUM 9.3 mg/dL (8.4-10.2); CREATININE, SERUM 1.23 mg/dL (0.72-1.25); POTASSIUM 5.3 mmol/L (3.5-5.1)
[2018-04-06] MEDS ORDERED: HYDROMORPHONE 1MG/1ML INJ IV PRN (21:15)
[2018-04-06] MEDS ORDERED: HYDROMORPHONE 1MG/1ML INJ IV STA (21:15)
[2018-04-06] MEDS ORDERED: HYDROMORPHONE 2MG/ML 2 MG/ML ML IV ONE (22:00)
[2018-04-06] MEDS: VANCOMYCIN 1GM/NS 250 ML 250 ML IV SCH (22:09)
[2018-04-06] MEDS: SODIUM CHLORIDE 0.9% 1000ML 1,000 ML IV SCH (22:09)
[2018-04-06] MEDS: HYDROMORPHONE 2MG/ML 2 MG/ML ML IV PRN (23:58)
[2018-04-07] VITALS (86 sets, daily range): BP systolic 43–142; BP diastolic 23–106
[2018-04-07] MEDS: NOREPINEPHRINE INJ 4MG/4ML 8 MG in DEXTROSE 5% 250ML 250 ML IV SCH ×4 (00:11→17:08)
[2018-04-07] MEDS ORDERED: NOREPINEPHRINE 8 MG/D5W 250 ML 250 ML ONE ×3 (03:49→16:59)
[2018-04-07] MEDS: ONDANSETRON HCL INJ 2 MG/ML VIAL IV PRN (04:28)
[2018-04-07] MEDS: HYDROMORPHONE 2MG/ML 2 MG/ML ML IV PRN ×2 (04:28→09:29)
[2018-04-07 04:56] LABS: BASOPHILS # (AUTO) 0.1 (0.0-0.1); BASOPHILS % 0.2 % (0.0-1.0); EOSINOPHILS % 0.2 % (0.0-6.0); HEMATOCRIT 31.6 % (38.2-49.6); HEMOGLOBIN 9.9 g/dL (14.0-18.0); LYMPHOCYTES # (AUTO) 1.6 (1.0-3.2); LYMPHOCYTES % 6.3 % (18.0-39.1); MEAN CORPUSCULAR HEMOGLOBIN 28.4 pg (28-32); MEAN CORPUSCULAR HGB CONC 31.3 g/dL (31-35); MEAN CORPUSCULAR VOLUME 90.5 fL (81-99); MONOCYTES # (AUTO) 2.3 (0.2-0.8); MONOCYTES % 9.1 % (4.4-11.3); NEUTROPHILS # (AUTO) 20.8 (2.1-6.9); NEUTROPHILS % 82.9 % (38.7-80.0); PLATELET COUNT 471 x10e3/uL (140-360); RED BLOOD COUNT 3.49 x10e6/uL (4.3-5.7); RED CELL DISTRIBUTION WIDTH 15.3 % (11.7-14.4)
[2018-04-07 05:32] LABS: ALBUMIN 1.4 g/dL (3.5-5.0); ALBUMIN/GLOBULIN RATIO 0.3 (0.8-2.0); ANION GAP 14.4 mmol/L (8-16); CALCIUM 9.2 mg/dL (8.4-10.2); CREATININE, SERUM 1.55 mg/dL (0.72-1.25); POTASSIUM 5.4 mmol/L (3.5-5.1)
[2018-04-07] MEDS: CEFEPIME HCL 1 GM VIAL IV SCH ×3 (05:41→21:25)
[2018-04-07 07:25] LABS: ANISOCYTOSIS SLIGHT; BAND NEUTROPHILS % (MANUAL) 3 %; LYMPHOCYTES % (MANUAL) 12 % (19-48); MONOCYTES % (MANUAL) 7 % (3.4-9.0); NEUTROPHILS % (MANUAL) 78 % (40-74); PLATELET ESTIMATE SLIGHTLY INCREASED; PLATELET MORPHOLOGY COMMENT NORMAL; RBC MORPHOLOGY COMMENT ABNORMAL
[2018-04-07 07:26] LABS: TOXIC GRANULATION MODERATE
[2018-04-07] MEDS: SODIUM CHLORIDE 0.9% 1000ML 1,000 ML IV SCH ×2 (07:36→17:08)
[2018-04-07] MEDS: METOPROLOL TARTRATE 25 MG TAB PO SCH ×2 (08:43→13:19)
[2018-04-07] MEDS ORDERED: PANTOPRAZOLE SOD 40 MG TABEC PO SCH (09:00)
[2018-04-07] MEDS: SPIRONOLACTONE 25 MG TAB PO SCH (09:29)
[2018-04-07] MEDS ORDERED: HYDROMORPHONE 2MG/ML 2 MG/ML ML IV PRN (15:45)
[2018-04-07] MEDS: FAMOTIDINE 20 MG/2 ML VIAL IV SCH (17:08)
--- NOTE | 2018-04-07 17:30 | Diagnostic Imaging Report ---
EXAMINATION: CHEST SINGLE (PORTABLE) INDICATION: ^PNEUMONIA ^[id number] ^[id number] ^Y COMPARISON: 04/06/2018 FINDINGS: AP view TUBES and LINES: Stable dual-lead left chest wall cardiac device and right IJ central line. LUNGS: Limited by body habitus and low lung volumes. Patient's chin obscures lung apices. Retrocardiac and right basilar opacities. Pulmonary vascular congestion and mild interstitial edema. PLEURA: No significant pleural effusion or pneumothorax. HEART AND MEDIASTINUM: The cardiomediastinal silhouette is enlarged. Median sternotomy wires BONES AND SOFT TISSUES: No acute osseous lesion. Soft tissues are unremarkable. UPPER ABDOMEN: No free air under the diaphragm. IMPRESSION: Very limited study as above. Retrocardiac/left basilar and right lower lung field opacities, concerning for pneumonia and/or atelectasis. Pulmonary vascular congestion and mild interstitial edema. Signed by: Dr. Kvng Pichardo MD on 04/07/2018 5:27 PM
--- NOTE | 2018-04-07 18:26 | Consultation ---
DATE OF CONSULTATION: REASON FOR CONSULTATION: Infected hip. HISTORY OF PRESENT ILLNESS: This patient who is a 72-year-old white male, morbidly obese patient. The patient back in October apparently fell on his left hip and knee. He fractured his left hip, underwent open reduction and internal fixation. Two weeks later, he started to have dehiscence. Wound VAC was placed. Yesterday when he was being visited by his wound care nurse, a gush of pus came out, so he was brought here and is currently in the intensive care unit. Family is at the bedside. The patient has history of diabetes mellitus type 2, congestive heart failure, heart disease, stage 3 chronic kidney disease, coronary artery disease, obesity, incontinence of the urine, prostate cancer status post chemo, status post radiation, systolic congestive heart failure, open cholecystectomy, abdominal hernia, perforated duodenal ulcer, coronary artery bypass in 2006, pacemaker in 2007, prostate cancer surgery in 1998 followed by chemotherapy, prostate cancer radiation in 2002, appendectomy in 1957. SOCIAL HISTORY: There is no smoking, drug abuse, or alcohol abuse. FAMILY HISTORY: Hypertension and diabetes. The patient is really weak. He is currently in the intensive care unit, complaining of pain in the knee and the hip. The patient came to the emergency room and x-ray done showed hardware appears intact. The distal tip of the intramedullary portion of the hardware is off the midline overlies anterior mid shaft. His wound culture showing gram-negative rods. LABORATORY DATA: White count 25.1, hemoglobin 9.9, hematocrit 31, his platelet 171. Sodium 124, potassium 5.4, creatinine of 1.55. Liver enzymes within normal limits. His BNP is 167. MEDICATION LIST: He is currently on cefepime 1 g q.8, vancomycin 1 g q.24. REVIEW OF SYSTEMS GENERAL: Not feeling well. HEENT: There is no headache, visual changes, or hearing changes. GI: There is no nausea, no vomiting. CARDIAC: No arrhythmia. NEURO: No seizure activity. SKIN: There is no rash. PHYSICAL EXAMINATION GENERAL: He is alert, obese, does not seem to be in acute distress. VITALS: Heart rate 81, blood pressure 101/53. HEENT: Not icteric. NECK: Supple. CHEST: Clear, obese. EXTREMITIES: Left hip, there is dehiscence of the wound packed. IMPRESSION: Infected hardware in a patient who has obesity, diabetes mellitus, coronary artery disease, congestive heart failure. I think prognosis is really poor. I am not so sure if he is a surgical candidate. Ideally, it could have been to do removal of the hardware with antibiotic, but I do not think medically he is a candidate. He would need cardiac clearance and I think the prognosis is really poor. Mortality is high with this procedure. However, I discussed with the family the plan for him to go to [facility]. Agree with the choice of IV antibiotic for now. Obtain a sed rate, C-reactive protein. Will need a PICC line. Will need at least 8 weeks of IV antibiotic and removal of the hardware if medically stable. Will follow. Job#: [id number] STEPHAN
[2018-04-07] MEDS: MORPHINE SULFATE 2 MG/ML SYR IV PRN (19:40)
[2018-04-07] MEDS: VANCOMYCIN 1GM/NS 250 ML 250 ML IV SCH (21:25)
[2018-04-08] VITALS (92 sets, daily range): BP systolic 54–151; BP diastolic 21–129
[2018-04-08] MEDS: MORPHINE SULFATE 2 MG/ML SYR IV PRN ×5 (03:20→21:10)
[2018-04-08] MEDS: SODIUM CHLORIDE 0.9% 1000ML 1,000 ML IV SCH ×2 (03:28→12:04)
[2018-04-08 05:35] LABS: BASOPHILS # (AUTO) 0.1 (0.0-0.1); BASOPHILS % 0.2 % (0.0-1.0); EOSINOPHILS % 0.1 % (0.0-6.0); HEMATOCRIT 29.5 % (38.2-49.6); HEMOGLOBIN 9.1 g/dL (14.0-18.0); LYMPHOCYTES # (AUTO) 1.3 (1.0-3.2); LYMPHOCYTES % 4.6 % (18.0-39.1); MEAN CORPUSCULAR HEMOGLOBIN 28.3 pg (28-32); MEAN CORPUSCULAR HGB CONC 30.8 g/dL (31-35); MEAN CORPUSCULAR VOLUME 91.6 fL (81-99); MONOCYTES # (AUTO) 2.2 (0.2-0.8); MONOCYTES % 7.5 % (4.4-11.3); NEUTROPHILS # (AUTO) 24.8 (2.1-6.9); NEUTROPHILS % 86.2 % (38.7-80.0); PLATELET COUNT 407 x10e3/uL (140-360); RED BLOOD COUNT 3.22 x10e6/uL (4.3-5.7)
[2018-04-08] MEDS: CEFEPIME HCL 1 GM VIAL IV SCH ×3 (05:56→22:00)
[2018-04-08 05:57] LABS: ALBUMIN 1.4 g/dL (3.5-5.0); ALBUMIN/GLOBULIN RATIO 0.3 (0.8-2.0); ANION GAP 12.4 mmol/L (8-16); CREATININE, SERUM 2.03 mg/dL (0.72-1.25); POTASSIUM 5.4 mmol/L (3.5-5.1)
[2018-04-08] MEDS ORDERED: NOREPINEPHRINE 8 MG/D5W 250 ML 250 ML ONE (07:07)
[2018-04-08] MEDS: NOREPINEPHRINE INJ 4MG/4ML 8 MG in DEXTROSE 5% 250ML 250 ML IV SCH (07:12)
[2018-04-08] MEDS: METOPROLOL TARTRATE 25 MG TAB PO SCH ×2 (08:16→16:51)
[2018-04-08] MEDS: FAMOTIDINE 20 MG/2 ML VIAL IV SCH ×2 (09:21→17:06)
[2018-04-08 13:22] LABS: BAND NEUTROPHILS % (MANUAL) 1 %; LYMPHOCYTES % (MANUAL) 5 % (19-48); MONOCYTES % (MANUAL) 14 % (3.4-9.0); NEUTROPHILS % (MANUAL) 80 % (40-74); PLATELET ESTIMATE ADEQUATE; PLATELET MORPHOLOGY COMMENT NORMAL; RBC MORPHOLOGY COMMENT NORMAL
[2018-04-08] MEDS: METRONIDAZOLE 500MG/NS 100ML 100 ML IV SCH ×2 (13:22→22:00)
[2018-04-08 16:26] LABS: ANION GAP 12.2 mmol/L (8-16); CALCIUM 8.7 mg/dL (8.4-10.2); CREATININE, SERUM 1.99 mg/dL (0.72-1.25); POTASSIUM 5.2 mmol/L (3.5-5.1)
[2018-04-09] VITALS (93 sets, daily range): BP systolic 79–140; BP diastolic 21–109
[2018-04-09] MEDS: VANCOMYCIN 1GM/NS 250 ML 250 ML IV SCH ×2 (00:12→22:25)
[2018-04-09] MEDS: SODIUM CHLORIDE 0.9% 1000ML 1,000 ML IV SCH ×3 (00:12→22:25)
[2018-04-09] MEDS: MORPHINE SULFATE 2 MG/ML SYR IV PRN ×2 (01:04→04:10)
[2018-04-09 05:16] LABS: BASOPHILS % 0.2 % (0.0-1.0); EOSINOPHILS # (AUTO) 0.2 (0.0-0.4); HEMATOCRIT 27.5 % (38.2-49.6); HEMOGLOBIN 8.5 g/dL (14.0-18.0); LYMPHOCYTES % 6.3 % (18.0-39.1); MEAN CORPUSCULAR HEMOGLOBIN 28.2 pg (28-32); MEAN CORPUSCULAR HGB CONC 30.9 g/dL (31-35); MEAN CORPUSCULAR VOLUME 91.4 fL (81-99); MONOCYTES # (AUTO) 1.3 (0.2-0.8); MONOCYTES % 8.2 % (4.4-11.3); NEUTROPHILS # (AUTO) 13.4 (2.1-6.9); NEUTROPHILS % 82.8 % (38.7-80.0); PLATELET COUNT 303 x10e3/uL (140-360); RED BLOOD COUNT 3.01 x10e6/uL (4.3-5.7)
[2018-04-09 05:35] LABS: ALBUMIN 1.4 g/dL (3.5-5.0); ALBUMIN/GLOBULIN RATIO 0.3 (0.8-2.0); ANION GAP 11.2 mmol/L (8-16); CALCIUM 8.7 mg/dL (8.4-10.2); CREATININE, SERUM 1.93 mg/dL (0.72-1.25); POTASSIUM 5.2 mmol/L (3.5-5.1)
[2018-04-09] MEDS: METRONIDAZOLE 500MG/NS 100ML 100 ML IV SCH ×3 (05:50→22:25)
[2018-04-09] MEDS: CEFEPIME HCL 1 GM VIAL IV SCH ×2 (05:50→14:00)
--- NOTE | 2018-04-09 06:35 | Diagnostic Imaging Report ---
EXAM: CHEST SINGLE (PORTABLE), AP 1 view INDICATION: Bibasilar pneumonia COMPARISON: AP view of the chest April 07, 2018 FINDINGS: LINES/TUBES: Stable right internal jugular vein central line and left approach dual lead cardiac device. LUNGS: Bilateral interstitial edema and bibasilar atelectasis. PLEURA: Small bilateral pleural effusions. HEART AND MEDIASTINUM: Stable cardiomegaly. BONES AND SOFT TISSUES: No acute findings. IMPRESSION: Stable findings of mild fluid overload. Signed by: Dr. Erma Alvarez M.D. on 04/09/2018 6:32 AM
[2018-04-09] MEDS ORDERED: MORPHINE SULFATE 2 MG/ML SYR IV PRN (07:15)
[2018-04-09] MEDS: FAMOTIDINE 20 MG/2 ML VIAL IV SCH ×2 (08:23→18:47)
[2018-04-09] MEDS: METOPROLOL TARTRATE 25 MG TAB PO SCH ×2 (08:27→17:00)
[2018-04-09] MEDS: ONDANSETRON HCL INJ 2 MG/ML VIAL IV PRN ×2 (09:44→21:25)
[2018-04-09] MEDS: MORPHINE SULFATE INJ 4 MG/ML INJ IV PRN ×3 (09:44→21:25)
[2018-04-09] MEDS: MEROPENEM 500MG/ NS 50ML 50 ML IV SCH (16:02)
[2018-04-09] MEDS: NOREPINEPHRINE INJ 4MG/4ML 8 MG in DEXTROSE 5% 250ML 250 ML IV SCH (16:15)
--- NOTE | 2018-04-09 17:45 | Consultation ---
DATE OF CONSULTATION: April 09, 2018 RENAL CONSULTATION REASON FOR CONSULTATION: Acute kidney injury. HISTORY OF PRESENT ILLNESS: This 72-year-old male, with history of chronic kidney disease, diabetes, hypertension, was brought from home to [facility] for left hip wound. The patient is a poor historian. He just received pain meds. History is taken from his at bedside as well as the medical record. The patient underwent open reduction and internal fixation of a fractured hip on December 05, 2017, without initially any complications. However, he had some wound dehiscence 2 weeks later, and a wound VAC was placed. The patient has been seen by the wound care nurse at home. On the day of admission, he had pus leaking out of the wound. The patient was brought to the hospital. The patient is currently in the intensive care unit on dopamine. He was found to be hyperkalemic with worsening kidney function, and nephrology consultation was called. The patient states his kidney function has been 30% to 40% for some time, but he has not seen any skid machine operator as an outpatient. REVIEW OF SYSTEMS: As above. All other systems negative. PAST MEDICAL HISTORY 1. Chronic kidney disease, stage 3. 2. Diabetes, type 2. 3. Congestive heart failure. 4. Hypertension. 5. Coronary artery disease. 6. History of prostate cancer. PAST SURGICAL HISTORY 1. Open cholecystectomy. 2. Abdominal hernia surgery. 3. Perforated duodenal ulcer surgery. 4. CABG in 2006. 5. Pacemaker in 2007. 6. Appendectomy. SOCIAL HISTORY: No tobacco. No alcohol. No IV drugs. FAMILY HISTORY: No kidney disease. ALLERGIES: NO KNOWN DRUG ALLERGIES. CURRENT MEDICATIONS: See list. PHYSICAL EXAMINATION VITALS: Blood pressure 102/21, pulse 60, respiratory rate 19, temperature 97.7. GENERAL: No apparent distress. Obese. HEENT: Oropharynx is clear. No scleral icterus. No periorbital edema. NECK: Supple. No elevation of jugular venous pressure. No lymphadenopathy. CHEST: Decreased breath sounds at bases anteriorly bilaterally. CARDIOVASCULAR: Regular rate and rhythm. No murmurs or rubs. ABDOMEN: Soft. Positive bowel sounds. No tenderness. No rebound. EXTREMITIES: 1+ edema. No clubbing. No cyanosis. : Campbell catheter in place. SKIN: Dressing on left hip. LABS: White count 16.2, hemoglobin 8.5, hematocrit 27.5, platelets 303. Sodium 121, potassium 5.2, chloride 94, CO2 21, BUN 60, creatinine 1.93, glucose 183, albumin 1.4. Urine specific gravity 1.005, 2+ leukocyte esterase, 11-20 WBCs. Urine culture pending. Wound culture reviewed. ASSESSMENT AND PLAN 1. Acute kidney injury on stage-3 chronic kidney disease secondary to ongoing infection and sepsis due to acute tubular necrosis. Continue with pressors and broad-spectrum antibiotics. Avoid all nephrotoxic medications. 2. Hyponatremia secondary to above. Place patient on fluid restriction. Continue with isotonic fluid. 3. Hyperkalemia, improved. Place the patient on renal diabetic diet. 4. Sepsis on broad-spectrum antibiotics and dopamine. Infectious disease following. 5. Diabetes per primary team. 6. Anemia. Transfuse for hemoglobin less than 7. Job#: [id number]
[2018-04-10] VITALS (68 sets, daily range): BP systolic 92–146; BP diastolic 43–91
[2018-04-10] MEDS: MORPHINE SULFATE INJ 4 MG/ML INJ IV PRN ×7 (00:30→23:49)
[2018-04-10] MEDS: MEROPENEM 500MG/ NS 50ML 50 ML IV SCH ×2 (03:40→15:05)
[2018-04-10 04:29] LABS: BASOPHILS % 0.2 % (0.0-1.0); EOSINOPHILS # (AUTO) 0.2 (0.0-0.4); EOSINOPHILS % 1.5 % (0.0-6.0); HEMATOCRIT 26.5 % (38.2-49.6); HEMOGLOBIN 8.3 g/dL (14.0-18.0); LYMPHOCYTES # (AUTO) 0.9 (1.0-3.2); LYMPHOCYTES % 6.3 % (18.0-39.1); MEAN CORPUSCULAR HEMOGLOBIN 28.5 pg (28-32); MEAN CORPUSCULAR HGB CONC 31.3 g/dL (31-35); MEAN CORPUSCULAR VOLUME 91.1 fL (81-99); MONOCYTES # (AUTO) 1.1 (0.2-0.8); MONOCYTES % 8.4 % (4.4-11.3); NEUTROPHILS % 81.8 % (38.7-80.0); PLATELET COUNT 320 x10e3/uL (140-360); RED BLOOD COUNT 2.91 x10e6/uL (4.3-5.7); RED CELL DISTRIBUTION WIDTH 14.9 % (11.7-14.4)
[2018-04-10 04:46] LABS: ALBUMIN 1.4 g/dL (3.5-5.0); ALBUMIN/GLOBULIN RATIO 0.4 (0.8-2.0); ANION GAP 12.1 mmol/L (8-16); CALCIUM 8.7 mg/dL (8.4-10.2); CREATININE, SERUM 1.78 mg/dL (0.72-1.25); MAGNESIUM 1.5 MG/DL (1.3-2.1); PHOSPHORUS 3.6 MG/DL (2.3-4.7); POTASSIUM 5.1 mmol/L (3.5-5.1)
[2018-04-10] MEDS: SODIUM CHLORIDE 0.9% 1000ML 1,000 ML IV SCH (04:50)
[2018-04-10] MEDS: METRONIDAZOLE 500MG/NS 100ML 100 ML IV SCH ×3 (05:16→21:12)
[2018-04-10] MEDS: METOPROLOL TARTRATE 25 MG TAB PO SCH ×2 (07:30→17:00)
[2018-04-10 08:39] LABS: CREATINE KINASE MB 6.4 ng/mL (0-5.0)
[2018-04-10] MEDS: FAMOTIDINE 20 MG/2 ML VIAL IV SCH ×2 (09:15→17:43)
[2018-04-10] MEDS: MIDODRINE 2.5 MG TAB PO SCH ×2 (13:50→17:43)
--- NOTE | 2018-04-10 14:03 | Consultation ---
DATE OF CONSULTATION: WOUND CONSULTATION Thank you, Dr. Elizabeth, for asking me to see this patient. HISTORY OF PRESENT ILLNESS: A 72-year-old morbidly obese male patient suffered a fall with a left hip fracture, underwent left hip replacement on March 07. Patient's wound dehisced, and he was hospitalized for infection. He was receiving at the correction treatment at home with home health with a Wound VAC at the surgical site. Nurse noticed a gush of blood and purulent drainage; so, he was sent to the emergency room. Patient now has a large cavity at the wound on the left hip site. Wound consult was called. PAST MEDICAL HISTORY: Congestive heart failure, chronic stage 3 kidney disease, coronary artery disease, obesity, incontinence, prostate cancer status post chemo, status post radiation. SURGICAL HISTORY: History of open cholecystectomy, abdominal hernia, perforated duodenal ulcer, coronary artery bypass in 2006, pacemaker 2007, prostatic cancer surgery in 1998 followed by chemo, prostate radiation in 2002, appendectomy 1957. SOCIAL HISTORY: No history of smoking or alcohol. PHYSICAL EXAMINATION VITAL SIGNS: Weight 263 pounds, BMI 41, height 67. HEENT: Normal. NECK: Normal. LUNGS: . ABDOMEN: Protuberant, obese. Left lateral hip area, patient has a large wound that measures approximately 15 x 3 cm with a depth of 4 cm. There is a small wound on the wound bed draining blood and pus. Wound irrigated with normal saline, packed with Dakin's moistened Kerlix. ASSESSMENT 1. Left hip postsurgical wound with infection. 2. Debility. 3. Multiple comorbid conditions. PLAN: Will currently pack the wound with Kerlix-moistened Dakin's, ABD and tape. Consider Wound VAC when wound is not bleeding. IV antibiotics followed by removal of the prosthesis. Thank you for the consultation. Job#: [id number] EV
--- NOTE | 2018-04-10 14:21 | Consultation ---
DATE OF CONSULTATION: April 10, 2018 CARDIOLOGY CONSULTATION REASON FOR CONSULTATION: Shock. HISTORY OF PRESENT ILLNESS: Mr. Espinoza is a 72-year-old male with past medical history of hypertension, hypercholesterolemia, type 2 diabetes, coronary artery disease with prior history of CABG, chronic kidney disease, stage 3, history of prostate cancer with prior chemo therapy and radiation therapy, history of pacemaker implantation in 2007, and really has been progressively declining since October of this year where he had a left hip and knee fracture and underwent open reduction and internal fixation. His course is complicated by wound dehiscence two weeks afterwards and has been undergoing wound care and conservative therapy. He was noted to come in to the hospital with a gush of pus coming out of his hip wound, and having hypotension, malaise, etc. Wound culture came back positive with MRSA and Enterobacter species, and was brought to the ICU for further care and management. He was noted to be confused and still is markedly confused and unable to corroborate much history outside of him having pain all over, particularly in the hip region. He is presumed to have hip hardware infection and is in septic shock and was treated with pressors with Dopamine and Levophed therapy. He has been on broad spectrum antibiotics, receiving meropenem and vancomycin. He is noted to be successfully weaned off of Levophed therapy; however, he is still on 7 mcg per minute of Dopamine. He reports just generalized shortness of breath and difficulty weaning off of the Dopamine therapy. Cardiac consultation was obtained. The patient currently is confused and is not a reliable historian. PAST MEDICAL HISTORY: 1. Hypertension, essential. 2. Hypercholesterolemia. 3. Chronic kidney disease, stage 3. 4. Congestive heart failure, unclear details. 5. Coronary artery disease with history of CABG. 6. History of pacemaker implantation in 2007. 7. History of prostate cancer status post chemotherapy and radiation therapy. 8. History of left hip infection. 9. Type 2 diabetes. 10. Obesity. PAST SURGICAL HISTORY: 1. History of open cholecystectomy. 2. History of abdominal hernia. 3. Remote history of perforated duodenal ulcer. 4. CABG in 2006. 5. History of pacemaker in 2007. 6. History of appendectomy in 1957. FAMILY HISTORY: Unable to be obtained secondary to mental condition. SOCIAL HISTORY: Unable to obtain secondary to mental condition, but per chart review no smoking, alcohol or illicit drug use. ALLERGIES: NO KNOWN DRUG ALLERGIES. HOME MEDICATIONS: Atorvastatin 30 mg nightly, Glyburide 2.5 mg daily, lisinopril 5 mg daily, metoprolol 12.5 mg b.i.d., Protonix 40 mg daily, Aldactone 25 mg b.i.d. REVIEW OF SYSTEMS: Unable to obtain secondary to altered mental status and not reliable. PHYSICAL EXAMINATION VITAL SIGNS: Height of 67 inches, weight 263 pounds, BMI is 41.2, temperature 96.0, pulse of 60, currently V pacing 100% of the time, blood pressure 121/50, O2 sat 100% on 2 liters nasal cannula. GENERAL: This is a disheveled, lethargic, chronically ill-appearing male lying in bed, weak. HEENT: Pupils equal, round and reactive. Extraocular movements intact. Oropharynx is clear. NECK: Elevation of jugular venous pulsation to the angle of the mandible. CARDIOVASCULAR: Regular rate and rhythm. Normal S1 and S2. A 2/6 systolic ejection murmur. There is a midline sternotomy scar in the left shoulder, pacemaker scar. ABDOMEN: There is a midline epigastric abdominal wall hernia, soft, obese. BACK: No costovertebral angle tenderness. EXTREMITIES: Warm with 3+ pitting edema. There is left hip wound that is dressed and definitely painful to palpation. NEUROLOGIC: He is confused. He moves all 4 extremities. He is not vocal. Very limited exam secondary to habitus. LABORATORY DATA: White count 13.5, hemoglobin 8.3, hematocrit 26.5, platelets 320,000, sodium 122, potassium 5.1, chloride 96, bicarb 19, BUN 56, creatinine 1.78, glucose of 153. Calcium of 8.7, AST 23, ALT 25, alkaline phosphatase 107, total protein of 5.4, albumin of 1.4, troponin is 0.001, INR is 0.93. Chest x-ray from April 09 shows pulmonary edema and volume overload. EKG reveals 100% ventricularly paced rhythm. DIAGNOSES 1. Septic shock secondary to infected left hip wound growing MRSA Enterobacter species, poor prognosis. 2. Coronary artery disease with CABG without any symptoms currently suggestive of any angina. 3. Lcyiw-el-lwynsvs decompensated, presumably, systolic and diastolic heart failure. 4. Severe debility. 5. Severe hyperalbuminemia with severe protein calorie malnutrition. 6. Hyponatremia, poor prognostic sign. 7. Failure to thrive. 8. Chronic kidney disease, stage 3. PLANS/RECOMMENDATIONS: 1. From a cardiovascular standpoint, the patient has had a left hip operation in November 2017 and suspect his hardware is likely infected with wound dehiscence, inability to heal, and apparently, speaking to the nursing staff, has been deemed a nonsurgical candidate for removal. 2. Overall suspect the patient is terminal due to this condition. 3. He is currently on IV antibiotic therapy with broad-spectrum antibiotics. 4. We can attempt to wean the Dopamine therapy as tolerated and if need be we can try to start him on Midodrine. 5. Likely will need aggressive IV diuretic and appreciate renal aid and management. 6. Overall, very high expected mortality and will try to help out as best as we can. Job#: [id number]
--- NOTE | 2018-04-10 15:21 | Diagnostic Imaging Report ---
Exam: Left hipCT without contrast. History: Hip pain. Decubitus ulcer. Sepsis. Leg abscess. Comparison:Radiographs 04/06/2018 Technique: Utilizing a 64-slice multidetector CT, axial imaging was performed through the left hip without IV contrast. Multiplanar reformation was performed. All CT scans are performed using radiation dose reduction techniques. Technical factors are evaluated and adjusted to ensure appropriate moderation of exposure. Automated dose management technology is applied to adjust the radiation dose to minimize exposure while achieving a diagnostic-quality image. Findings: Metallic artifact about the left hip and proximal left femur obscures fine detail of the region. Status post left hip replacement with associated postsurgical change. The surgical hardware is intact without evidence of failure or loosening. Subcutaneous air is seen along the distal posterior shaft of the femur, at the anterior inferior aspect of the left hip joint and along the posterior lateral aspect of the left hip and proximal left thigh soft tissues. A sinus tract to the skin is seen along the posterior lateral aspect of the inferior left hip on axial series 2 image 30 through 35. No well-formed drainable fluid collection/abscess is seen. There is diffuse muscle atrophy. Scattered degenerative changes are seen. Scattered vascular calcifications are seen. Impression: Status post left hip replacement with associated postsurgical change. The surgical hardware is intact without evidence of failure or loosening. Subcutaneous air is seen along the distal posterior shaft of the femur, at the anterior inferior aspect of the left hip joint and along the posterior lateral aspect of the left hip and proximal left thigh soft tissues. A sinus tract to the skin is seen along the posterior lateral aspect of the inferior left hip. No well-formed drainable fluid collection/abscess is seen. Signed by: Dr. Dennis Hemphill M.D. on 04/10/2018 3:17 PM
[2018-04-10] MEDS ORDERED: MIDODRINE 2.5 MG TAB PO SCH (16:00)
[2018-04-10] MEDS: NOREPINEPHRINE INJ 4MG/4ML 8 MG in DEXTROSE 5% 250ML 250 ML IV SCH (16:15)
[2018-04-10] MEDS ORDERED: SODIUM HYPOCHLORITE 0.25% 480 ML SOLN IR SCH (17:00)
[2018-04-10] MEDS: ONDANSETRON HCL INJ 2 MG/ML VIAL IV PRN (19:27)
[2018-04-10] MEDS ORDERED: ALPRAZOLAM 0.25 MG TAB PO PRN (19:45)
[2018-04-10] MEDS: VANCOMYCIN 1GM/NS 250 ML 250 ML IV SCH (21:15)
[2018-04-11] VITALS (20 sets, daily range): BP systolic 116–132; BP diastolic 43–63
[2018-04-11] MEDS ORDERED: SODIUM CHLORIDE 0.9% 1000ML 1,000 ML ONE (00:16)
[2018-04-11] MEDS ORDERED: SODIUM CHLORIDE 0.9% 1000ML 1,000 ML IV SCH (00:30)
[2018-04-11] MEDS: SODIUM HYPOCHLORITE 0.25% 480 ML SOLN IR SCH ×3 (03:08→17:12)
[2018-04-11] MEDS: MEROPENEM 500MG/ NS 50ML 50 ML IV SCH ×2 (03:08→15:40)
[2018-04-11] MEDS: MORPHINE SULFATE INJ 4 MG/ML INJ IV PRN ×3 (03:12→17:51)
[2018-04-11] MEDS: METRONIDAZOLE 500MG/NS 100ML 100 ML IV SCH ×3 (05:05→22:00)
[2018-04-11] MEDS: FAMOTIDINE 20 MG/2 ML VIAL IV SCH ×2 (08:07→17:12)
[2018-04-11] MEDS: MIDODRINE 2.5 MG TAB PO SCH ×3 (08:07→17:12)
[2018-04-11] MEDS: METOPROLOL TARTRATE 25 MG TAB PO SCH (08:08)
[2018-04-11] MEDS ORDERED: FUROSEMIDE INJ 10 MG/ML 4 ML VIAL IV ONE (08:30)
[2018-04-11] MEDS: ENOXAPARIN SOD INJ 40 MG/0.4 ML SYR SC SCH ×2 (08:49→17:12)
[2018-04-11] MEDS: NOREPINEPHRINE INJ 4MG/4ML 8 MG in DEXTROSE 5% 250ML 250 ML IV SCH (10:58)
[2018-04-11] MEDS: VANCOMYCIN 1GM/NS 250 ML 250 ML IV SCH (22:00)
[2018-04-12] VITALS (52 sets, daily range): BP systolic 94–129; BP diastolic 41–54
[2018-04-12] MEDS: MORPHINE SULFATE INJ 4 MG/ML INJ IV PRN ×3 (02:33→19:42)
[2018-04-12] MEDS: MEROPENEM 500MG/ NS 50ML 50 ML IV SCH ×2 (03:47→14:38)
[2018-04-12 05:25] LABS: BASOPHILS % 0.3 % (0.0-1.0); EOSINOPHILS # (AUTO) 0.2 (0.0-0.4); EOSINOPHILS % 1.5 % (0.0-6.0); HEMATOCRIT 24.3 % (38.2-49.6); HEMOGLOBIN 7.7 g/dL (14.0-18.0); LYMPHOCYTES # (AUTO) 1.5 (1.0-3.2); LYMPHOCYTES % 10.9 % (18.0-39.1); MEAN CORPUSCULAR HEMOGLOBIN 29.1 pg (28-32); MEAN CORPUSCULAR HGB CONC 31.7 g/dL (31-35); MEAN CORPUSCULAR VOLUME 91.7 fL (81-99); NEUTROPHILS # (AUTO) 10.8 (2.1-6.9); NEUTROPHILS % 76.8 % (38.7-80.0); PLATELET COUNT 271 x10e3/uL (140-360); RED BLOOD COUNT 2.65 x10e6/uL (4.3-5.7); RED CELL DISTRIBUTION WIDTH 15.4 % (11.7-14.4)
[2018-04-12] MEDS: METRONIDAZOLE 500MG/NS 100ML 100 ML IV SCH ×3 (05:36→21:00)
[2018-04-12 05:52] LABS: ALBUMIN 1.6 g/dL (3.5-5.0); ALBUMIN/GLOBULIN RATIO 0.4 (0.8-2.0); ANION GAP 12.8 mmol/L (8-16); CALCIUM 8.7 mg/dL (8.4-10.2); CREATININE, SERUM 1.82 mg/dL (0.72-1.25); POTASSIUM 4.8 mmol/L (3.5-5.1)
[2018-04-12 07:15] LABS: EOSINOPHILS % (MANUAL) 1 % (0-7); LYMPHOCYTES % (MANUAL) 8 % (19-48); MONOCYTES % (MANUAL) 3 % (3.4-9.0); NEUTROPHILS % (MANUAL) 88 % (40-74)
[2018-04-12 07:16] LABS: ANISOCYTOSIS SLIGHT; HYPOCHROMASIA MODERATE; PLATELET ESTIMATE ADEQUATE; PLATELET MORPHOLOGY COMMENT NORMAL; POIKILOCYTOSIS SLIGHT; RBC MORPHOLOGY COMMENT NORMAL
[2018-04-12] MEDS: MIDODRINE 2.5 MG TAB PO SCH ×3 (08:31→17:01)
[2018-04-12] MEDS: SODIUM HYPOCHLORITE 0.25% 480 ML SOLN IR SCH ×2 (08:31→17:01)
[2018-04-12] MEDS: FAMOTIDINE 20 MG/2 ML VIAL IV SCH ×2 (08:31→17:01)
[2018-04-12] MEDS ORDERED: FUROSEMIDE INJ 10 MG/ML 4 ML VIAL IV ONE (10:00)
[2018-04-12] MEDS ORDERED: FUROSEMIDE INJ 10 MG/ML 2 ML VIAL IV PRN (10:00)
[2018-04-12] MEDS ORDERED: SODIUM CHLORIDE 0.9% 250ML 250 ML IV ONE (10:00)
[2018-04-12] MEDS: ENOXAPARIN SOD INJ 40 MG/0.4 ML SYR SC SCH (17:01)
[2018-04-12] MEDS: VANCOMYCIN 1GM/NS 250 ML 250 ML IV SCH (21:00)
== END 2018-04-12 22:52 | disposition hospice, home (50) | DRG 559 ==
LOC: ER 12:07 → ERHOLD 14:43 → ICU 18:01
PROC: 02HV33Z Insertion of Infusion Device into Superior Vena Cava, Percutaneous Approach (ICD-10-PCS; principal; 2018-04-06)
PROC: 3E043XZ Introduction of Vasopressor into Central Vein, Percutaneous Approach (ICD-10-PCS; 2018-04-07)
PROC: 30243N1 Transfusion of Nonautologous Red Blood Cells into Central Vein, Percutaneous Approach (ICD-10-PCS; 2018-04-12)
DX: T84.52XA Infection and inflammatory reaction due to internal left hip prosthesis, initial encounter (principal); A41.9 Sepsis, unspecified organism; R65.21 Severe sepsis with septic shock; N17.0 Acute kidney failure with tubular necrosis; I50.43 Acute on chronic combined systolic (congestive) and diastolic (congestive) heart failure; E43 Unspecified severe protein-calorie malnutrition; T81.32XA Disruption of internal operation (surgical) wound, not elsewhere classified, initial encounter; I13.0 Hypertensive heart and chronic kidney disease with heart failure and stage 1 through stage 4 chronic kidney disease, or unspecified chronic kidney disease; Z68.42 Body mass index [BMI] 45.0-49.9, adult; Y83.1 Surgical operation with implant of artificial internal device as the cause of abnormal reaction of the patient, or of later complication, without mention of misadventure at the time of the procedure; L89.152 Pressure ulcer of sacral region, stage 2; B95.62 Methicillin resistant Staphylococcus aureus infection as the cause of diseases classified elsewhere; B96.89 Other specified bacterial agents as the cause of diseases classified elsewhere; E11.22 Type 2 diabetes mellitus with diabetic chronic kidney disease; N18.3 Chronic kidney disease, stage 3 (moderate); E87.5 Hyperkalemia; R49.22 Hyponasality; D64.9 Anemia, unspecified; R53.81 Other malaise; Z51.5 Encounter for palliative care; I25.10 Atherosclerotic heart disease of native coronary artery without angina pectoris; Z66 Do not resuscitate; E66.01 Morbid (severe) obesity due to excess calories; R62.7 Adult failure to thrive; Z79.84 Long term (current) use of oral hypoglycemic drugs; Z95.1 Presence of aortocoronary bypass graft; Z95.0 Presence of cardiac pacemaker; Z85.46 Personal history of malignant neoplasm of prostate; Z92.3 Personal history of irradiation; Z92.21 Personal history of antineoplastic chemotherapy
CPT/HCPCS: 36415; 36555; 71045; 80048; 80053; 80202; 81001; 82550; 82553; 82948; 83605; 83735; 83880; 83935; 84100; 84300; 84484; 85025; 85610; 85730; 86850; 86900; 86920; 87040; 87071; 87086; 87186; 87205; 93005; 93306; 99285; J0692; J1650; J1940; J2270; J2405; J3370; J7030; J7040; J7050; P9016